=== PATIENT | female | born 1950 | race Caucasian/White ===

== ENCOUNTER 2016-10-21 10:12 | Emergency (ER) | payer MEDICARE, BC ==
[2016-10-21 10:21] VITALS: BMI 44.9
[2016-10-21 10:26] VITALS: TEMP 98.3
[2016-10-21 10:33] LABS: MPV 7.6 fL (7.4-10.4)
[2016-10-21 10:47] LABS: PARTIAL THROMB. TIME 24.1 SEC (22-35); PT-INR 1.1
[2016-10-21 10:50] LABS: BLOOD UREA NITROGEN 54 MG/DL (7-17); CALCIUM 9.5 MG/DL (8.4-10.2); CALCULATED OSMOLALITY 279 MOs/Kg (270-290); CHLORIDE 93 mEq/L (98-107); CPK TOTAL WITH POSSIBLE MB 144 IU/L (30-134); GLUCOSE 140 MG/DL (70-99); SODIUM LEVEL 136 mEq/L (137-146); TOTAL PROTEIN 8.3 G/DL (6.3-8.2)
[2016-10-21 10:54] LABS: SEG NEUTROPHIL 61 % (45-76)
--- NOTE | 2016-10-21 11:10 | EDPRACDOC ---
- General Information Stated Complaint: ABNORMAL EKG Time Seen by Provider: 10/21/16 11:07 Information Source: Patient Home Medications: Home Medications Acetaminophen Oral Liquid [Tylenol] 500 mg PO Q6-8H PRN 01/29/13 Aspirin [Aspirin EC] 81 mg PO DAILY 01/29/13 B Complex & C No.20/Folic Acid [Renal Caps Softgel] 1 mg PO .DAILY@NOON Carvedilol [Coreg] 25 mg PO HS 01/29/13 Docusate Sodium [Colace] 100 mg PO HS 01/29/13 Levothyroxine Sodium [Synthroid] 50 mcg PO DAILY 01/29/13 Meclizine HCl [Antivert] 12.5 mg PO DAILY PRN 01/29/13 Cczqo-1-Rnes Ethyl Esters [Lovaza ([place]-3 Acid Ethyl Esters)] 1,000 mg PO .QAM & SUPPER 01/29/13 Omeprazole [Prilosec] 40 mg PO BID 01/29/13 Tramadol HCl [Ultram] 50 mg PO Q8 PRN 01/29/13 Zinc Gluconate [Zinc Lozenge] 50 mg PO DAILY 01/29/13 Biotin 1 mg PO DAILY 10/21/16 Calcium Acetate 2,668 mg PO .TID W/MEALS 10/21/16 Carbidopa/Levodopa [Carbidopa-Levodopa 25-100 Tab] 1 each PO QID 10/21/16 Finasteride [Proscar] 5 mg PO DAILY 10/21/16 Guaifenesin-Codeine [Robitussin AC] 10 ml PO Q6-8H 5 Days 10/21/16 Isosorbide Mononitrate [Isosorbide Mononitrate ER] 30 mg PO HS 10/21/16 [place]-3 Fatty Acids/Fish Oil [Fish Oil 1,000 mg Capsule] 2 each PO .DAILY@NOON 10/21/16 Prochlorperazine [Compazine] 10 mg PO Q6H PRN 10/21/16 Allergies/Adverse Reactions: Allergies Allergy/AdvReac Type Severity Reaction Status Date / Time chlorpheniramine Allergy Severe Difficulty Verified 10/21/16 11:26 [From [place]] Breathing phenylephrine HCl Allergy Severe Difficulty Verified 10/21/16 11:26 [From [place]] Breathing phenylpropanolamine HCl Allergy Severe Difficulty Verified 10/21/16 11:26 [From [place]] Breathing phenyltoloxamine Allergy Severe Difficulty Verified 10/21/16 11:26 [From [place]] Breathing amoxicillin [Amoxicillin] Allergy Mild Hives* Verified 10/21/16 11:26 ibuprofen Allergy Mild Hives* Verified 10/21/16 11:26 Sulfa (Sulfonamide Allergy Mild Hives* Verified 10/21/16 11:26 Antibiotics) - History of Present Illness Onset: 3 DAYS AGO Exact Onset of Symptoms: Unknown HPI: SENT OVER BY DR. COUCH FOR LABS. HE KNOWS PT WELL AND DOES NOT THINK THIS IS CARDIAC. CHRONIC CHEST WALL PAIN. ALSO ON DIALYSIS. HAD IT YESTERDAY Symptoms Started: Reports: Gradually Weakness: Bilateral: Generalized Symptoms: Reports: Weak Associated signs and symptoms:: Reports: None ED Past Medical History - History Reviewed Yes Nurses notes reviewed and agree except as marked - Patient Medical History Cardiac History: Reports: Coronary Artery Disease, Hypertension, Heart Attack () Respiratory History: Reports: Asthma, COPD GI/ History: Reports: Renal Disease, Renal Failure (end stage) Systemic History: Reports: Anemia. Denies: Cancer Surgical History: Reports: Appendectomy, Cholecystectomy. Denies: Hysterectomy - Social Medical History Smoking Status: Never smoker EDM Review of Systems - Review of Systems ROS Negative Except as Marked: Yes All systems reviewed and were negative except as marked - Physical Exam Constitutional: Alert (Awake), No apparent distress Oriented to: Time, Person, Place Last recorded Vital Signs: Last Vital Signs Temp 98.3 F 10/21/16 10:21 Pulse 62 10/21/16 10:47 Resp 18 10/21/16 10:47 BP 184/82 H 10/21/16 10:47 Pulse Ox 95 10/21/16 10:47 Oxygen Pulse Oxygen Saturation 95 O2 Device Room Air Oxygen Flow Rate Fraction of Inspired Oxygen ( FIO2) - HEENT Head: Normal ( normocephalic) Eye Exam: Normal (PERRL, EOMI, Sclera white) Oropharynx: Normal (Pharynx:Moist without exudate,Gums-no swelling) ENT EAC: Normal TMJ: Normal Nose: No Symptoms Reported (septum midline) Neck: Normal (FROM, trachea at midline) - Respiratory/Cardiovascular Respiratory: Normal - CTA (BBS clear to auscultation without adventitious sounds ) Cardiovascular: Normal (RRR without murmur, gallop or rub) - GI Auscultation: Normal (NABS) Palpation: Normal (Soft,No rebound or guarding, non distended) Tenderness: Non tender Hwang's Sign: Negative - Musculoskeletal Back: Normal (Non-Tender) Extremities: Normal (Normal tone, Pulses 2+ No cyanosis or edema, FROM) - Integumentary Skin: Normal, Warm, Dry Lymphatics: Normal (no adenopathy) - Neurologic Memory Impaired: Normal Motor Function: Normal (Normal tone, Pulses 2+ No cyanosis or edema, FROM) Cranial Nerve: Normal (CN II-X11 intact sensation, strength 5/5) Cerebellar: Normal Mood Description: Normal Perception: Normal - Results 10/21/16 10:22 10/21/16 10:22 WBC 7.9 xk/uL (3.8-10.8) 10/21/16 10:22 RBC 3.34 xM/uL (4.20-5.40) L 10/21/16 10:22 Hgb 12.2 g/dL (12.0-16.0) 10/21/16 10:22 Hct 35.5 % (36-47) L 10/21/16 10:22 MCV 106 fL (81-99) H 10/21/16 10:22 MCH 36.6 pg (27-32) H 10/21/16 10:22 MCHC 34.4 g/dl (33-36) 10/21/16 10:22 RDW 13.6 % (11.5-14.5) 10/21/16 10:22 Plt Count 247 xk/uL (130-400) 10/21/16 10:22 MPV 7.6 fL (7.4-10.4) 10/21/16 10:22 Neut % (Auto) Cancelled 10/21/16 10:22 Lymph % (Auto) Cancelled 10/21/16 10:22 [place] % (Auto) Cancelled 10/21/16 10:22 Eos % (Auto) Cancelled 10/21/16 10:22 Baso % (Auto) Cancelled 10/21/16 10:22 Absolute Neuts (auto) Cancelled 10/21/16 10:22 Absolute Lymphs (auto) Cancelled 10/21/16 10:22 Seg Neuts % (Manual) 61 % (45-76) 10/21/16 10:22 Band Neutrophils % 0 % (0-5) 10/21/16 10:22 Lymphocytes % (Manual) 29 % (17-44) 10/21/16 10:22 Monocytes % (Manual) 6 % (0-10) 10/21/16 10:22 Eosinophils % (Manual) 3 % (0-5) 10/21/16 10:22 Basophils % (Manual) 1 % (0-2) 10/21/16 10:22 Absolute Neutrophils 4.82 xk/uL (1.7-8.2) 10/21/16 10:22 Absolute Lymphocytes 2.29 xk/uL (0.65-4.75) 10/21/16 10:22 Platelet Estimate Norm (NORMAL) 10/21/16 10:22 RBC Morphology 1+ macro 1+ poik 10/21/16 10:22 RBC Morphology 1+ macro 1+ poik 10/21/16 10:22 PT 11.3 SEC (9.2-11.2) H 10/21/16 10:22 INR 1.1 10/21/16 10:22 APTT 24.1 SEC (22-35) 10/21/16 10:22 Sodium 136 mEq/L (137-146) L 10/21/16 10:22 Potassium 4.5 mEq/L (3.5-5.1) 10/21/16 10:22 Chloride 93 mEq/L (98-107) L 10/21/16 10:22 Carbon Dioxide 26 mMOL/L (22-33) 10/21/16 10:22 Anion Gap 22 mEq/L (8-16) H 10/21/16 10:22 BUN 54 MG/DL (7-17) H 10/21/16 10:22 Creatinine 8.00 MG/DL (0.52-1.04) H 10/21/16 10:22 Estimated GFR (MDRD) 5 mL/min (>=60) L 10/21/16 10:22 Glucose 140 MG/DL (70-99) H 10/21/16 10:22 Calculated Osmolality 279 MOs/Kg (270-290) 10/21/16 10:22 Calcium 9.5 MG/DL (8.4-10.2) 10/21/16 10:22 Total Bilirubin 0.8 MG/DL (0.2-1.3) 10/21/16 10:22 AST 22 IU/L (14-36) 10/21/16 10:22 ALT 12 IU/L (9-52) 10/21/16 10:22 Alkaline Phosphatase 69 IU/L (55-165) 10/21/16 10:22 Creatine Kinase 144 IU/L (30-134) H 10/21/16 10:22 Troponin I < 0.01 ng/mL (<.04) 10/21/16 10:22 Jte-L-Ehbopkdnjxu Pept 1520 pg/mL (0-900) H 10/21/16 10:22 Total Protein 8.3 G/DL (6.3-8.2) H 10/21/16 10:22 Albumin 4.5 G/DL (3.5-5.0) 10/21/16 10:22 Lab Results 10/21/16 10/21/16 10/21/16 10:22 10:22 10:22 WBC 7.9 RBC 3.34 L Hgb 12.2 Hct 35.5 L MCV 106 H MCH 36.6 H MCHC 34.4 RDW 13.6 Plt Count 247 MPV 7.6 Neut % (Auto) Cancelled Lymph % (Auto) Cancelled [place] % (Auto) Cancelled Eos % (Auto) Cancelled Baso % (Auto) Cancelled Absolute Neuts (auto) Cancelled Absolute Lymphs (auto) Cancelled Seg Neuts % (Manual) 61 Band Neutrophils % 0 Lymphocytes % (Manual) 29 Monocytes % (Manual) 6 Eosinophils % (Manual) 3 Basophils % (Manual) 1 Absolute Neutrophils 4.82 Absolute Lymphocytes 2.29 Platelet Estimate Norm RBC Morphology 1+ poik PT 11.3 H INR 1.1 APTT 24.1 Sodium 136 L Potassium 4.5 Chloride 93 L Carbon Dioxide 26 Anion Gap 22 H BUN 54 H Creatinine 8.00 H Estimated GFR (MDRD) 5 L Glucose 140 H Calculated Osmolality 279 Calcium 9.5 Total Bilirubin 0.8 AST 22 ALT 12 Alkaline Phosphatase 69 Creatine Kinase 144 H Troponin I < 0.01 Lhu-F-Bwqijqaldyb Pept 1520 H Total Protein 8.3 H Albumin 4.5 - EKG EKG #1 [place]: Normal Rhythm: NSR Block: None Hypertrophy: None ST: Normal Decision Time to Discharge: 12:20 - Departure Yes I personally saw and evaluated the patient. Disposition: Home Condition: Good Final Diagnosis: URI Instructions: Upper Respiratory Infection (ED) Education/Counseling Given To: Patient, Family Member Education/Counseling Given Regarding: Diagnosis, Treatment, Prognosis Prescriptions: Guaifenesin-Codeine [Robitussin AC] 10 ml PO Q6-8H 5 Days
--- NOTE | 2016-10-21 11:24 | DIRPT ---
CLINICAL DATA: Generalized weakness, chills, nausea vomiting and dizziness. Symptoms worsened yesterday. EXAM: CHEST 2 VIEW COMPARISON: 07/28/2016 FINDINGS: Cardiac silhouette is normal in size and configuration. No mediastinal or hilar masses or evidence of adenopathy. Clear lungs. No pleural effusion or pneumothorax. Bony thorax is intact. IMPRESSION: No active cardiopulmonary disease. Electronically Signed By: Robert Stanton M.D. On: 10/21/2016 11:21
[2016-10-21 11:26] LABS: CPKMB 1.1 ng/mL (0-4.5)
[2016-10-21 13:03] VITALS: BP 105/74; PULSE 86
== END 2016-10-21 13:01 | disposition home or self-care (01) ==
LOC: ED 10:12
DX: J06.9 Acute upper respiratory infection, unspecified (principal)
CPT/HCPCS: 36415; 71020; 80053; 82550; 82553; 83880; 84484; 85007; 85027; 85610; 85730; 93005; 99284